=== PATIENT | female | born 1995 | race Two or more races ===

== ENCOUNTER 2020-04-03 16:11 | Emergency (ER) | payer OTHER ==
[~2020-04-03] VITALS: Ht 142.2 cm; Wt 35.8 kg
[2020-04-03 16:20] VITALS: BP 130/76
[2020-04-03] MEDS ORDERED: ACETAMINOPHEN 325 MG TABLET PO ONE (16:30)
--- NOTE | 2020-04-03 16:34 | NUR ---
BIBS TO ER BED 11. AAOX4.L NOT IN RESP DISTRESS. CAME IN FOR R GREAT TOE PAIN S/P HELIUM TANK FELL ON HER FOOT. PAIN IS RATE 8/10. PT REPORTS TAKING ADVIL 3-4 HOURS AGO. NOTE SWELLING AND DRIED BLOOD. ROM LIMITED. POLLY CID WAS AT THE BEDSIDE FOR EVAL. ORDERS RECEIVED NOTED AND CARRIED OUT.
[2020-04-03] MEDS ORDERED: ACETAMINOPHEN ES 500 MG TABLET ONE (16:55)
--- NOTE | 2020-04-03 17:25 | NUR ---
Patient discharged to home in stable condition. Written and verbal after care instructions given. Patient verbalizes understanding of instruction.
== END 2020-04-03 17:28 | disposition home or self-care (01) ==
LOC: EDBD 16:13 → ER 16:13
DX: S92.421A Displaced fracture of distal phalanx of right great toe, initial encounter for closed fracture (principal); S92.531A Displaced fracture of distal phalanx of right lesser toe(s), initial encounter for closed fracture; W20.8XXA Other cause of strike by thrown, projected or falling object, initial encounter; Y93.89 Activity, other specified; Y92.89 Other specified places as the place of occurrence of the external cause; Y99.8 Other external cause status
CPT/HCPCS: 73660-TC